=== PATIENT | male | born 1990 | race Caucasian/White ===

== ENCOUNTER 2017-10-21 18:40 | Emergency (ER) | payer OTHER ==
[2017-10-21] MEDS ORDERED: DIPH/PERTUSS(ACELL)/TETANUS VAC/PF 0.5 ML SYR (>=10YO) IM ONE (18:46)
[2017-10-21] MEDS ORDERED: CEFAZOLIN INJ 1 GM VIAL IM ONE (18:47)
[2017-10-21] MEDS ORDERED: LIDOCAINE 1%/EPINEPHRINE INJ 20 ML VIAL INJ ONE (18:53)
--- NOTE | 2017-10-21 18:54 | ER Document Report ---
HPI - HPI Pain Level: 1 Context: Patient is a 27-year-old male presents emergency department with a laceration to the left dorsal forearm that happened at approximately 9 AM. Patient was working in his wood shop when a blade cut his left forearm. Unsure of tetanus statu. denies any numbness, tingling, difficulty moving any of his fingers or wrist. Past Medical History - Social History Smoking Status: Smoker,Current Status Unk Family History: Reviewed & Not Pertinent - Immunizations Hx Diphtheria, Pertussis, Tetanus Vaccination: Yes Vertical Provider Document - CONSTITUTIONAL Agree With Documented VS: Yes Notes: PHYSICAL EXAM GENERAL: Alert, interacts well. 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 Full range of motion and strength equal in all upper extremity digits. Cap refill less than 2 seconds in all bilateral upper extremity digits moves all 4 extremities spontaneously. No edema, radial and dorsalis pedis pulses 2/4 bilaterally. No cyanosis. NEUROLOGICAL: Alert and oriented x4. Normal speech. PSYCH: Normal affect, normal mood. SKIN: Warm, dry, normal turgor. 7 cm laceration on the middle section of the left dorsal forearm down extending past the fascia but not with any laceration to the underlying muscle. - INFECTION CONTROL TRAVEL OUTSIDE OF THE [place] IN LAST 30 DAYS: No - RESPIRATORY O2 Sat by Pulse Oximetry: 99 Course - Re-evaluation Re-evalutation: 10/21/17 21:46 Patient is a 27-year-old male is hemodynamic stable, no acute distress and afebrile. X-ray without any evidence of foreign body. Wound irrigated with Betadine and saline and closed with deep layer of Vicryl and then primarily with removable suture. Patient's tetanus status updated and initiated on antibiotics given prolonged closure time and exposure. Patient to follow-up in 5-7 days for wound check. - Vital Signs Vital signs: Temp Pulse Resp BP Pulse Ox 98.1 F 90 137/84 H 99 10/21/17 18:49 10/21/17 18:49 10/21/17 18:49 10/21/17 18:49 Procedures - Laceration/Wound Repair Left Dorsal Wound length (cm): 7 - left dorsal forearm Wound's Depth, Shape: Into muscle, Linear Laceration pre-procedure: Sterile PPE donned, Betadine prep applied, Sterile drapes applied Anesthetic type: 1% Lidocaine w/epi Volume Anesthetic (mLs): 10 Wound explored: Clean, No foreign body removed Irrigated w/ Saline (mLs): 1,000 Wound Debrided: Minimal Wound Repaired With: Sutures Suture Size/Type: 4:0, Prolene Number of Sutures: 10 Layer Closure?: Yes Deep Layer Suture Size/Type: 4:0, Other - vicryl Number Deep Layer Sutures: 1 - running subcuticular Post-procedure wound care: Sterile dressing applied Post-procedure NV exam normal: Yes Complications: No Discharge - Discharge Clinical Impression: Laceration Condition: Good Disposition: HOME, SELF-CARE Additional Instructions: LACERATION CARE: Your laceration has been sutured to keep the skin edges aligned during healing. The time of suture removal depends on the nature and location of your cut. Please follow the care instructions the doctor has outlined for you and return for further care, according to the schedule you've been given. Keep the wound and dressing clean. Unless you were told otherwise, you may shower daily, blotting the wound dry with a clean, unused towel. At other times, If the dressing gets wet or blood soaked, remove it and blot the wound dry, then reapply a new dressing. Unless you were instructed otherwise, dressings should be changed at least daily. If any signs of infection occur (swelling, redness, drainage, increasing tenderness, red streaks, tender lumps in the armpit or groin above the laceration, or fever), see the doctor immediately. SOAP CLEANSING: Gently wash the wound daily using a mild soap (like Ivory, Phisoderm, Neutrogena). Use warm water, rubbing gently until all debris, ooze, and crusting have been washed from the wound. Allow to dry briefly (about 10 minutes) after cleaning. Repeat this cleansing at least three times a day for the first two days and then once or twice a day. ANTIBIOTIC OINTMENT PROTECTION: Your wounds are such that dressing them is not practical or optional. After cleansing, you should apply a thin coating of antibiotic ointment ( Bacitracin, not Neosporin) to the wounds at least three times daily. This lessens infection risk, and may decrease the amount of scarring. Use a q-tip or dull butter knife, not your finger, to apply this ointment. Any debris or ooze which builds up in the ointment should be gently rubbed off with a sterile gauze pad. Harder crusting may need to be gently scrubbed off with a clean wash cloth with soap and warm water, perhaps applying a warm, wet wash cloth to the wound for ten minutes first. Development of redness, severe itching, or blistering may mean allergy to the ointment. See the doctor. TETANUS IMMUNIZATION GIVEN: You have been given an immunization against tetanus. Please record this in your records. In general, a booster is needed only once every 10 years. The tetanus shot protects against tetanus or "lockjaw," which is a complication of certain wound infections (the tetanus shot cannot protect against the actual infection). The immunization site may become warm and red due to local reaction. If this occurs, apply warm compresses and take aspirin or ibuprofen to reduce inflammation and discomfort. Return for evaluation if the reaction becomes severe. PROPHYLACTIC ANTIBIOTIC: The antibiotics which have been prescribed are designed to decrease the risk of infection. Only certain types of wounds benefit from this -- the typical cut, scrape, or burn DOES NOT require antibiotics. Of course, infection can still occur despite the use of prophylactic antibiotics. Your wound will heal with less chance of an infectious complication if you take the medication as directed. The most important dose is the FIRST dose, so don't delay filling the prescription! FOLLOW-UP CARE: Please return in 5-7 days for an infection check and dressing change. Your sutures should be removed in 8-14 days. To facilitate a timely removal of your sutures, you may return to the Emergency Department at [facility]. You do not need to call for an appointment, but the best time to come in for suture removal is early in the morning. If you have been referred to another physician for follow-up care, call that physicians office for an appointment as you were instructed. If you experience a significant change in your laceration, or if you are concerned there may be an infection (swelling, redness, drainage, increasing tenderness, red streaks, tender lumps in the armpit or groin above the laceration, or fever) , return to the Emergency Department immediately re-evaluation. Prescriptions: Cephalexin Monohydrate [Keflex 500 mg Capsule] 500 mg PO BID 10 Days capsule Referrals: [facility] [Provider Group] - Follow up in 1 week
--- NOTE | 2017-10-21 20:29 | RADIOLOGY REPORT (SQ) ---
EXAM DESCRIPTION: FOREARM LEFT COMPLETED DATE/TIME: 10/21/2017 8:20 pm REASON FOR STUDY: laceration, r/o Fb COMPARISON: None. NUMBER OF VIEWS: Two views. TECHNIQUE: Two radiographic images acquired of the left forearm, including elbow and wrist in at [address] one projection. LIMITATIONS: None. FINDINGS: MINERALIZATION: Normal. BONES: No acute fracture. No worrisome bone lesions. SOFT TISSUES: Laceration along the lateral aspect of the mid forearm. No foreign body. OTHER: No other significant finding. IMPRESSION: No foreign body. TECHNICAL DOCUMENTATION: JOB ID: [id number] [employer]- All Rights Reserved Reading location - IP/workstation name: [email or web address]
[2017-10-21 21:51] VITALS: BP 124/77
== END 2017-10-21 22:01 | disposition home or self-care (01) ==
LOC: ER 18:40
PROC: 0HQEXZZ Repair Left Lower Arm Skin, External Approach (ICD-10-PCS; principal; 2017-10-21)
DX: S51.812A Laceration without foreign body of left forearm, initial encounter (principal); W29.8XXA Contact with other powered hand tools and household machinery, initial encounter; Z23 Encounter for immunization
CPT/HCPCS: 99283; 96372; 90471; 73090; 90715; 12002; J0690; J3490

== ENCOUNTER 2017-11-06 19:10 | Emergency (ER) | payer OTHER ==
[2017-11-06] MEDS ORDERED: IBUPROFEN 800 MG TABLET PO ONE (20:29)
--- NOTE | 2017-11-06 20:36 | RADIOLOGY REPORT (SQ) ---
EXAM DESCRIPTION: ANKLE LEFT COMPLETE COMPLETED DATE/TIME: 11/06/2017 8:28 pm REASON FOR STUDY: left ankle pain, fall, lateral swelling COMPARISON: None. NUMBER OF VIEWS: Three views. TECHNIQUE: AP, lateral, and oblique radiographic images acquired of the left ankle. LIMITATIONS: None. FINDINGS: MINERALIZATION: Normal. BONES: No acute fracture or dislocation. No worrisome bone lesions. JOINTS: No effusions. SOFT TISSUES: Soft tissue swelling laterally. OTHER: No other significant finding. IMPRESSION: Soft tissue swelling. No fracture. TECHNICAL DOCUMENTATION: JOB ID: [id number] [employer]- All Rights Reserved Reading location - IP/workstation name: [email or web address]
--- NOTE | 2017-11-06 20:50 | ER Document Report ---
ED Extremity Problem, Lower - General Mode of Arrival: Ambulatory Information source: Patient TRAVEL OUTSIDE OF THE [place] IN LAST 30 DAYS: No <GALILEA THOMAS - Last Filed: 11/07/17 03:04> <JOSE CAMPOS - Last Filed: 11/07/17 03:14> - General Chief Complaint: Ankle Pain Stated Complaint: FALL/ANKLE INJURY Time Seen by Provider: 11/06/17 20:08 Notes: Patient is a 27 year old male presenting to the emergency department complaining of left ankle pain onset today. Patient states that he fell down the stairs and hit his left ankle. Patient states he is able to ambulate and has been staying on his feet although it is painful to do so. Patient states he took a Tylenol around 1600 and a daily Mobic this morning. Patient denies any numbness or tingling. Patient also presents with a sutured laceration on his left forearm inquiring if he is able to get the sutures removed. Patient states he received the sutures approximately 1 1/2 weeks ago. (GALILEA THOMAS) - Related Data Allergies/Adverse Reactions: No Known Allergies Allergy (Verified 11/06/17 19:12) Past Medical History - General Information source: Patient - Social History Smoking Status: Current Every Day Smoker Cigarette use (# per day): Yes Chew tobacco use (# tins/day): Yes Frequency of alcohol use: None Drug Abuse: None Family History: Reviewed & Not Pertinent - Immunizations Hx Diphtheria, Pertussis, Tetanus Vaccination: Yes <GALILEA THOMAS - Last Filed: 11/07/17 03:04> Review of Systems - Review of Systems Constitutional: No symptoms reported EENT: No symptoms reported Cardiovascular: No symptoms reported Respiratory: No symptoms reported Gastrointestinal: No symptoms reported Genitourinary: No symptoms reported Male Genitourinary: No symptoms reported Musculoskeletal: See HPI, Ankle swelling Skin: See HPI Hematologic/Lymphatic: No symptoms reported Neurological/Psychological: No symptoms reported -: Yes All other systems reviewed and negative <GALILEA THOMAS - Last Filed: 11/07/17 03:04> Physical Exam <GALILEA THOMAS - Last Filed: 11/07/17 03:04> <JOSE CAMPOS - Last Filed: 11/07/17 03:14> - Vital signs Vitals: Temp Pulse Resp BP Pulse Ox 98.6 F 80 16 120/74 99 11/06/17 19:18 11/06/17 19:18 11/06/17 19:18 11/06/17 19:18 11/06/17 19:18 - Notes Notes: GENERAL: Alert, interacts well. No acute distress. HEAD: Normocephalic, atraumatic. EYES: Pupils equal, round, and reactive to light. Extraocular movements intact. ENT: Oral mucosa moist, tongue midline. NECK: Full range of motion. Supple. Trachea midline. EXTREMITIES: Tender to palpation posterior to the medial malleolus of the left ankle. Tender to palpation to lateral malleolus with significant swelling of the left ankle. Laceration to the left forearm with well approximted sutures, no tenderness, no fluctuance, no erythema, no discharge. Sutures will be removed. Moves all 4 extremities spontaneously. Radial and dorsalis pedis pulses 2/4 bilaterally. No cyanosis. NEUROLOGICAL: Alert and oriented x3. Normal speech. PSYCH: Normal affect, normal mood. SKIN: See extremities. (GALILEA THOMAS) Course <GALILEA THOMAS - Last Filed: 11/07/17 03:04> <JOSE CAMPOS - Last Filed: 11/07/17 03:14> - Re-evaluation Re-evalutation: 11/06/17 21:36 Stitches were removed, Steri-Strips placed. No signs of infection or dehiscence , counseled on post suture removal care. Left ankle x-ray shows soft tissue swelling but no fracture dislocation. Patient ambulating with small amount of pain but no limp. Patient will be placed in Gulshan wrap and given crutches. Placed on light duty for the next 3 days. Discharged home. (JOSE CAMPOS) - Vital Signs Vital signs: Temp Pulse Resp BP Pulse Ox 98.4 F 80 20 121/72 97 11/06/17 21:55 11/06/17 21:55 11/06/17 21:55 11/06/17 21:55 11/06/17 21:55 Procedures - Immobilization Left Ankle Pre-Proc Neuro Vasc Exam: Normal Immobilizer type: Gulshan wrap Performed by: RN Post-Proc Neuro Vasc Exam: Normal, Unchanged from pre-exam Alignment checked and good: Yes <JOSE CAMPOS - Last Filed: 11/07/17 03:14> Discharge <GALILEA THOMAS - Last Filed: 11/07/17 03:04> <JOSE CAMPOS - Last Filed: 11/07/17 03:14> - Discharge Clinical Impression: Visit for suture removal Left ankle sprain Qualifiers: Encounter type: initial encounter Involved ligament of ankle: calcaneofibular ligament Qualified Code(s): S93.412A - Sprain of calcaneofibular ligament of left ankle, initial encounter Condition: Stable Disposition: HOME, SELF-CARE Instructions: Sprained Ankle ([facility]), Suture Removal Forms: Special Work Note Scribe Attestation: 11/07/17 03:14 I personally performed the services described in the documentation, reviewed and edited the documentation which was dictated to the scribe in my presence, and it accurately records my words and actions. (JOSE CAMPOS) Scribe Documentation - Scribe Written by Mariah:: Mariah Heart, 11/06/2017 21:18 acting as scribe for :: Wade <GALILEA THOMAS - Last Filed: 11/07/17 03:04>
[2017-11-06 22:02] VITALS: BP 121/72
== END 2017-11-06 21:55 | disposition home or self-care (01) ==
LOC: ER 19:10
DX: S93.412A Sprain of calcaneofibular ligament of left ankle, initial encounter (principal); W10.9XXA Fall (on) (from) unspecified stairs and steps, initial encounter; S51.812D Laceration without foreign body of left forearm, subsequent encounter; X58.XXXD Exposure to other specified factors, subsequent encounter; F17.210 Nicotine dependence, cigarettes, uncomplicated
CPT/HCPCS: 99283